=== PATIENT | female | born 1990 | race Caucasian/White ===

== ENCOUNTER 2020-05-03 12:53 | Inpatient (IN) | payer OTHER ==
[~2020-05-03] VITALS: Ht 162.5 cm; Wt 64.7 kg
[2020-05-03 13:01] VITALS: BP 124/73
[2020-05-03 13:33] LABS: BILIRUBIN NEGATIVE (NEGATIVE); BLOOD 3+ (NEGATIVE); CLARITY SL CLOUDY (CLEAR); COLOR YELLOW (YELLOW); GLUCOSE NEGATIVE (NEGATIVE); KETONE NEGATIVE (NEGATIVE); NITRITE NEGATIVE (NEGATIVE); UROBILINOGEN 0.2 E.U./dl (0.2-1.0)
[2020-05-03 13:34] LABS: LEUKO ESTERASE NEGATIVE (NEGATIVE)
[2020-05-03 13:41] LABS: URINE AMPHETAMINES < 1000 (1000ng/ml); URINE BARBITURATES < 200 (200ng/ml); URINE BENZODIAZEPINES < 200 (200ng/ml); URINE CANNABINOIDS (THC) < 50 (50ng/ml); URINE COCAINE > 300 (300ng/ml); URINE METHADONE < 300 (300ng/ml); URINE OPIATES > 300 (300ng/ml)
[2020-05-03 13:42] LABS: URINE PHENCYCLIDINE < 25 (25ng/ml)
[2020-05-03 13:47] LABS: BACTERIA TRACE; MUCOUS TRACE; RBC 21-30 rbc/hpf (0-2)
[2020-05-03 14:15] VITALS: BP 116/78
[2020-05-03 14:22] LABS: HEMATOCRIT 30.9 % (37.0-47.0); MEAN CELL VOLUME 69.3 fl (81.0-99.0); MEAN CORPUSCULAR HGB 20.9 pg (27.0-31.0); MEAN CORPUSCULAR HGB CONC 30.1 g/dl (33.0-37.0); PLATELET COUNT AUTOMATED 196 10*3/uL (130-400); RED BLOOD COUNT 4.46 10*6/uL (4.10-5.10); RED CELL DISTRI WIDTH 17.2 % (0-14.5); WHITE BLOOD COUNT 8.6 10*3/uL (4.8-10.8)
[2020-05-03 14:26] LABS: ALBUMIN 3.5 gm/dl (3.1-4.5); ALKALINE PHOSPHATASE 79 U/L (45-117); BUN 11 mg/dl (7-24); CHLORIDE 108 mmol/L (98-107); CREATININE 0.76 mg/dL (0.55-1.02); POTASSIUM 3.8 mmol/L (3.5-5.1); SGOT/AST 22 IU/L (3-35); SGPT/ALT 31 U/L (12-78); SODIUM 140 mmol/L (136-145); TOTAL PROTEIN 7.8 gm/dL (6.4-8.2)
[2020-05-03 14:28] VITALS: BP 116/78
[2020-05-03 14:31] LABS: BETA-HCG, QUANT < 1.0 mIU/mL (1-3); ETHYL ALCOHOL < 3.0 mg/dl (<3)
[2020-05-03 15:09] LABS: BASOPHILS 1 % (0-1); MICROCYTOSIS SLIGHT; TOTAL CELLS COUNTED 100 #CELLS
[2020-05-03 15:10] LABS: PLATELET SUFFICIENCY NORMAL (NORMAL)
[2020-05-03 16:00] VITALS: BP 120/66
[2020-05-03 20:00] VITALS: BP 123/70
[2020-05-04] VITALS: BP 110/61
[2020-05-04 08:00] VITALS: BP 121/55
[2020-05-04 12:00] VITALS: BP 124/76
[2020-05-04 16:00] VITALS: BP 123/80
[2020-05-04 20:00] VITALS: BP 103/59
[2020-05-05] VITALS: BP 109/57
[2020-05-05 08:00] VITALS: BP 109/67
[2020-05-05 12:00] VITALS: BP 109/67
[2020-05-05 16:00] VITALS: BP 117/79
[2020-05-05 20:00] VITALS: BP 120/67
[2020-05-06] VITALS: BP 118/72
[2020-05-06 08:00] VITALS: BP 136/68
== END 2020-05-06 10:15 | disposition home or self-care (01) | DRG 773 ==
LOC: ED 12:53 → EDHOLD 13:24 → 5E 13:49
PROVIDERS: Student in an Organized Health Care Education/Training Program; ADMIT Family Medicine
DX: F11.23 Opioid dependence with withdrawal (principal); F14.10 Cocaine abuse, uncomplicated; F17.210 Nicotine dependence, cigarettes, uncomplicated; B19.20 Unspecified viral hepatitis C without hepatic coma; D50.9 Iron deficiency anemia, unspecified; R73.9 Hyperglycemia, unspecified; Z71.6 Tobacco abuse counseling; Z82.49 Family history of ischemic heart disease and other diseases of the circulatory system

== ENCOUNTER 2021-11-27 09:00 | Inpatient (IN) | payer OTHER ==
[~2021-11-27] VITALS: Ht 162.5 cm; Wt 66.9 kg
[2021-11-27 09:12] VITALS: BP 104/71
[2021-11-27 10:15] LABS: BASO % 0.5 % (0.0-1.0); EOS # 0.2 10*3/uL (0.0-0.4); HEMATOCRIT 41.9 % (37.0-47.0); LYMPH # 2.6 10*3/uL (1.3-4.4); LYMPH % 34.8 % (27.0-41.0); MEAN CORPUSCULAR HGB 24.2 pg (27.0-31.0); MEAN PLATELET VOLUME 11.9 fl (9.6-12.3); MONO # 0.7 10*3/uL (0.1-1.0); MONO % 8.7 % (3.0-9.0); NEUT # 4.1 10*3/uL (2.3-7.9); NEUT % 53.9 % (47.0-73.0); PLATELET COUNT AUTOMATED 243 10*3/uL (130-400); RED BLOOD COUNT 5.37 10*6/uL (4.10-5.10); RED CELL DISTRI WIDTH 17.9 % (0-14.5); WHITE BLOOD COUNT 7.6 10*3/uL (4.8-10.8)
[2021-11-27 10:42] LABS: ALBUMIN 3.4 gm/dl (3.1-4.5); ALKALINE PHOSPHATASE 79 U/L (45-117); BUN 8 mg/dl (7-24); CHLORIDE 111 mmol/L (98-107); CREATININE 0.69 mg/dL (0.55-1.02); LIPASE 122 U/L (73-393); POTASSIUM 4.4 mmol/L (3.5-5.1); SGOT/AST 22 IU/L (3-35); SGPT/ALT 25 U/L (12-78); SODIUM 136 mmol/L (136-145); TOTAL PROTEIN 7.6 gm/dL (6.4-8.2)
[2021-11-27 10:44] LABS: BILIRUBIN Negative (Negative); BLOOD Negative (Negative); CLARITY Clear (Clear); COLOR Yellow (Yellow); GLUCOSE Negative (Negative); KETONE Negative (Negative); LEUKO ESTERASE 1+ (Negative); NITRITE Negative (Negative); PH 5.5 (4.5-8.0); UROBILINOGEN 0.2 E.U./dl (0.0-1.0)
[2021-11-27 10:45] LABS: BETA-HCG, QUANT < 1.0 mIU/mL (1-3); ETHYL ALCOHOL < 3.0 mg/dl (<3)
[2021-11-27 11:00] LABS: URINE AMPHETAMINES < 1000 (1000ng/ml); URINE BARBITURATES < 200 (200ng/ml); URINE BENZODIAZEPINES < 200 (200ng/ml); URINE CANNABINOIDS (THC) < 50 (50ng/ml); URINE COCAINE > 300 (300ng/ml); URINE METHADONE < 300 (300ng/ml); URINE OPIATES < 300 (300ng/ml)
[2021-11-27 11:02] LABS: URINE PHENCYCLIDINE < 25 (25ng/ml)
[2021-11-27 11:04] LABS: BACTERIA 1+; WBC 21-30 wbc/hpf (0-5)
[2021-11-27 13:09] VITALS: BP 118/67
[2021-11-27 19:14] VITALS: BP 123/60
[2021-11-27 20:09] VITALS: BP 123/60
[2021-11-28] VITALS: BP 118/67
[2021-11-28 08:00] VITALS: BP 120/70
[2021-11-28 16:00] VITALS: BP 109/59
[2021-11-28 20:00] VITALS: BP 97/56
[2021-11-29] VITALS: BP 96/53
[2021-11-29 08:00] VITALS: BP 95/63
== END 2021-11-29 11:14 | disposition home or self-care (01) | DRG 773 ==
LOC: ED 09:00 → EDHOLD 09:58 → 5E 09:58
PROVIDERS: Emergency Medicine; ADMIT Family Medicine; ATTEND Family Medicine
DX: F11.23 Opioid dependence with withdrawal (principal); F14.10 Cocaine abuse, uncomplicated; E83.41 Hypermagnesemia; E87.8 Other disorders of electrolyte and fluid balance, not elsewhere classified; B18.2 Chronic viral hepatitis C; F41.9 Anxiety disorder, unspecified; F17.210 Nicotine dependence, cigarettes, uncomplicated; Z82.49 Family history of ischemic heart disease and other diseases of the circulatory system